=== PATIENT | female | born 1990 | race Caucasian/White ===

== ENCOUNTER → 2017-05-11 | Outpatient (CLI) | payer BC ==
--- NOTE | 2017-05-11 15:13 | DI ---
XR TIB/FIB 2VW,05/11/2017 11:23 AM: Clinical History: Level of skin over the left lower extremity. Previous Exam: None at this facility. Findings: AP and lateral views of the tibia and fibula are obtained, and demonstrate anatomic alignment without fractures. Surrounding soft tissues are unremarkable. Impression: No fracture.
== END ==
LOC: MOB RAD 11:26
PROVIDERS: ATTEND Physician Assistant Medical
DX: R22.42 Localized swelling, mass and lump, left lower limb (principal); R21 Rash and other nonspecific skin eruption
CPT/HCPCS: 73590